=== PATIENT | female | born 1960 | race Caucasian/White ===

== ENCOUNTER 2017-02-07 12:43 | Emergency (ER) | payer MEDICARE, OTHER ==
--- NOTE | ~2017-02-07 | ER ---
PATIENT'S NAME: [facility] AGE: 56 Y [address] ROOM: [place] [address] LOCATION: [facility] ADMIT DATE: 02/07/2017 ER/Outpatient Report DISCHARGE DATE: 02/07/2017 FAMILY PHYSICIAN: Sara Solano MD ATTENDING PHYSICIAN: Ok eBcker Time of Patient's Arrival: 1243 hours. Time of Patient's Evaluation: 1300 hours. CHIEF COMPLAINT: Psychiatric episode with diarrhea. HISTORY OF PRESENT ILLNESS: This is a 56-year-old female who presents to the ER via [facility] and accompanied by [employer], who states that she woke up around 4:30 this morning. She was drinking some whole pot of coffee and smoking a whole bunch of cigarettes. She states that she then decided to color her hair this morning and she was outside, she felt like she was going to be overheated. She states she has also had 2 episodes of diarrhea and did have an accident and was not able to get to the restroom in time. She states she has had no nausea or vomiting, no fevers. She states she has no abdominal discomfort. She does suffer from bipolar and everything that was going on today caused her to feel overwhelmed. She states that she has not been eating and has actually been fasting due to buddhism reasons. She states that she saw her primary care physician last week and has been doing good as far as her psychiatric medications are concerned. ALLERGIES: NO KNOWN ALLERGIES. MEDICATIONS: Please medication list in nurse's notes. MEDICAL HISTORY: Hypertension, hypothyroidism, restless legs syndrome, and bipolar. SOCIAL HISTORY: She does smoke cigarettes. Denies any drug or alcohol use. REVIEW OF SYSTEMS: All systems are reviewed and are negative with the exception of those discussed in the HPI. PHYSICAL EXAMINATION: VITAL SIGNS: Blood pressure is 169/91, pulse 74, respirations 20, temperature PATIENT'S NAME: MILLY [facility] AGE: 56 Y [address] ROOM: [place] [address] LOCATION: [facility] ADMIT DATE: 02/07/2017 ER/Outpatient Report DISCHARGE DATE: 02/07/2017 FAMILY PHYSICIAN: Sara Solano MD ATTENDING PHYSICIAN: Ok Becker 99 degrees tympanically, and saturations 95% on room air. [place] Coma Score is 15. GENERAL: Alert, tearful, agitated-appearing 56-year-old, in no acute distress initially upon her arrival here to the emergency room. We did have to coax her into helping her get cleaned up and getting her soiled jeans off and getting her a fresh new pair of pants. Once we got her cleaned up, she became less agitated and rested comfortably. HEENT: Head: Normocephalic. Eyes: Pupils are equal and reactive to light. She does display moist mucous membranes. LUNGS: Clear to auscultation bilaterally. HEART: Regular rate and rhythm. ABDOMEN: Soft, it is nontender. She has good bowel sounds throughout. No masses are palpated. EXTREMITIES: Warm, dry, and intact. I did not appreciate any lesions or rashes. LABORATORY DATA AND DIAGNOSTIC DATA: CBC: White count is 8.6, hemoglobin is 13.2, platelets are 271, and ANC is 7.6. CMS: Sodium is 132, otherwise unremarkable. Alcohol level is less than 0.010. Acetaminophen is less than 2.0. Depakote level is 32.0. [place] level is 0.9. Salicylate is 6.0. EKG shows sinus rhythm. IMPRESSION: 1. Bipolar disorder. 2. Diarrhea. ASSESSMENT/PLAN: Once we get the patient cleaned up, she rested comfortably her entire stay here. Her sister was at her bedside and was able to get her some lunch and she ate while she was here in the emergency room. We did have Simeon Santos come in and evaluate her as well. They did make her an action plan and her sister states that she will be staying for the remainder of the day. She needs to continue to use her home medications as directed. I advised her to follow up with primary care physician if needed. The patient understands and agrees with care. VIRGINIA ALEJANDRE PA-C FOR MD FARZAD NATHAN/romelia /[id number] d: 02/07/17 2147 t: 02/11/17 0711, OUTPATIENT REPORT
[2017-02-07 13:42] LABS: BASOPHIL % 0.5 %; EOSINOPHIL % 0.2 %; HEMOGLOBIN 13.2 g/dL (10.0-15.0); IMMATURE GRANULOCYTE % 0.1 %; LYMPHOCYTE # 0.7 K/uL (0.8-4.0); LYMPHOCYTE % 7.6 %; MCH 28.9 pg (27.0-34.0); MCV 87.7 fl (83.0-98.0); MONOCYTE # 0.3 K/uL (0.0-1.0); MONOCYTE % 3.7 %; MPV 9.2 fl (9.4-12.4); NEUTROPHIL # (ANC) 7.6 K/uL (1.8-7.8); NEUTROPHIL % 87.9 %; NRBC % 0 /100WBC (0-0.00); PLATELET COUNT 271 K/uL (150-450); RBC 4.56 M/uL (3.50-5.50); RDW-CV 13.7 % (11.9-14.6); WBC 8.6 K/uL (4.0-11.0)
[2017-02-07 14:01] LABS: ALBUMIN 3.8 gm/dL (3.5-5.0); ALK PHOS 79 IU/L (33-138); ALT 14 IU/L (12-78); ANION GAP 12.8 (10.0-19.0); AST 16 IU/L (10-40); BLOOD UREA NITROGEN 13 mg/dL (6-24); CALCIUM 9.3 mg/dL (8.5-10.5); CHLORIDE 100 mMol/L (96-110); CO2 23 mMol/L (22-32); CREATININE 0.9 mg/dL (0.5-1.1); ESTIMATED GFR (MDRD EQUATION) > 60; POTASSIUM 3.8 mMol/L (3.7-5.1); SODIUM 132 mMol/L (135-145); TOTAL BILIRUBIN 0.5 mg/dL (0.0-1.5); TOTAL PROTEIN 7.3 g/dL (6.0-8.4)
[2017-02-07 14:32] LABS: BARBITURATE NEGATIVE (NEGATIVE); OPIATES NEGATIVE (NEGATIVE)
[2017-02-07 14:41] LABS: AMPHETAMINE NEGATIVE (NEGATIVE); COCAINE NEGATIVE (NEGATIVE)
== END 2017-02-07 14:28 | disposition disaster alternative care site (69) ==
LOC: GMED 12:43
PROVIDERS: Emergency Medicine
DX: F31.9 Bipolar disorder, unspecified (principal); R19.7 Diarrhea, unspecified; I10 Essential (primary) hypertension; E03.9 Hypothyroidism, unspecified; G25.81 Restless legs syndrome; F17.210 Nicotine dependence, cigarettes, uncomplicated; Z79.899 Other long term (current) drug therapy
CPT/HCPCS: G0480

== ENCOUNTER → 2017-02-07 | Outpatient (CLI) | payer MEDICARE, OTHER | END | disposition disaster alternative care site (69) | LOC: GAMB 11:44 | DX: F41.9 Anxiety disorder, unspecified (principal); F31.9 Bipolar disorder, unspecified; F17.210 Nicotine dependence, cigarettes, uncomplicated; R32 Unspecified urinary incontinence; R46.2 Strange and inexplicable behavior; R06.00 Dyspnea, unspecified; R45.1 Restlessness and agitation; R41.82 Altered mental status, unspecified; Z79.899 Other long term (current) drug therapy | CPT/HCPCS: A0425; A0429 ==